=== PATIENT | male | born 1950 | race Caucasian/White ===

== ENCOUNTER → 2021-09-15 | Day surgery (SDC) | payer MEDICARE, OTHER ==
[~2021-09-15] VITALS: Ht 167.6 cm; Wt 64.4 kg
[~2021-09-15] MED LIST: LIPITOR 10MG TA10 MG PO; PRILOSEC20 MG PO; TAMSULOSIN HCL0.4 MG PO; VITAMIN D-40010 MCG PO
[2021-09-15 07:02] LABS: ALBUMIN 3.5 g/dL (3.4-5.0); BILIRUBIN - TOTAL 0.9 mg/dL (0.2-1.0); BUN/CREAT RATIO (CALC) 13.6 RATIO; CREATININE 0.88 mg/dL (0.67-1.17); GLOBULIN (CALCULATION) 3.2 g/dL; POTASSIUM 3.9 mmol/L (3.5-5.1); TOTAL PROTEIN 6.7 g/dL (6.4-8.2)
[2021-09-15 07:03] LABS: HGB 13.9 g/dl (13.2-18.0); MCH 32.5 pg (25.0-31.0); MCHC 33.9 g/dL (32.0-36.0); MCV 95.8 fL (78.0-100.0); MPV 9.9 fL (6.0-9.5); RBC 4.28 M/uL (4.70-6.00); RDW 13.2 % (11.5-14.0); WBC 5.2 K/uL (4.0-10.5)
== END | disposition home or self-care (01) ==
LOC: FAS 06:04
PROVIDERS: Orthopaedic Surgery
DX: G56.03 Carpal tunnel syndrome, bilateral upper limbs (principal); E11.9 Type 2 diabetes mellitus without complications; Z79.899 Other long term (current) drug therapy
CPT/HCPCS: 36415; 80053; 82962; J1100; J1885; J2250; J2405; J2704; J3010; J7120